=== PATIENT | male | born 1970 | race Caucasian/White ===

== ENCOUNTER 2021-07-17 18:38 | Emergency (ER) | payer SELFPAY ==
[~2021-07-17] VITALS: Ht 177.8 cm; Wt 81.6 kg
--- NOTE | 2021-07-17 18:58 | NUR ---
pt in room 3 c/o right wrist pain, states was trying to break a fall.
[2021-07-17] MEDS ORDERED: IBUPROFEN 600 MG TABLET PO ONE (19:15)
[2021-07-17] MEDS ORDERED: IBUPROFEN 600 MG TABLET ONE (19:16)
--- NOTE | 2021-07-17 20:36 | NUR ---
call to radiology as result has not come back yet.
[2021-07-17 21:21] VITALS: BP 130/80
--- NOTE | 2021-07-17 21:21 | NUR ---
Patient discharged to home in stable condition. Written and verbal after care instructions given. Patient verbalizes understanding of instructions. Stressed follow up or return to ER for worsening s/s.
== END 2021-07-17 21:21 | disposition home or self-care (01) ==
LOC: ER 18:42
DX: S63.502A Unspecified sprain of left wrist, initial encounter (principal); W19.XXXA Unspecified fall, initial encounter; Y92.89 Other specified places as the place of occurrence of the external cause
CPT/HCPCS: 73130; A4663